=== PATIENT | female | born 1970 | race Caucasian/White ===

== ENCOUNTER 2019-08-13 06:56 | Day surgery (SDC) | payer BC ==
--- NOTE | 2019-08-12 09:08 | HP ---
DATE: 08/13/19 ANTICIPATED PROCEDURE: Screening colonoscopy. HISTORY OF PRESENT ILLNESS: Patient requiring colonoscopy. PAST MEDICAL HISTORY: ALLERGIES: NONE. CURRENT MEDICATIONS: None. SURGERIES: None. SOCIAL HISTORY: Negative. FAMILY HISTORY: Negative. REVIEW OF SYSTEMS: Cardiovascular negative. Pulmonary negative. Gastrointestinal negative. PHYSICAL EXAMINATION: Vital signs normal. CHEST: Clear. COR: Regular. ABDOMEN: Satisfactory. PLAN: Screening colonoscopy.
[2019-08-13] MEDS ORDERED: Lactated Ringers 1,000 ML IV ONE ×2 (07:05→09:47)
[2019-08-13] MEDS ORDERED: Lactated Ringers 1,000 ML IV SCH (07:30)
[2019-08-13] MEDS ORDERED: DIPRIVAN 200 MG/20 ML IV ONE ×2 (09:24→09:35)
[2019-08-13 10:38] VITALS: O2SAT 100
[2019-08-13 11:10] VITALS: PULSE 79
[2019-08-13 11:11] VITALS: BP 145/77
--- NOTE | 2019-08-14 09:58 | OP ---
SURGERY DATE: 08/13/19 SURGERY TIME: 926 PREOPERATIVE DIAGNOSIS: 1. 48 YEARS OLD, PRESENTS FOR SCREENING. SHE DOES HAVE A FAMILY HISTORY WITH AN UNCLE WITH COLON CANCER. POSTOPERATIVE DIAGNOSIS: 1. NORMAL COLON. PROCEDURE: 1. Colonoscopy complete to cecum. FINDINGS: Normal. SURGEON: Luis Camacho M.D. ANESTHESIA: MAC. COMPLICATIONS: None. CONDITION: Stable. INDICATION: Patient presents for colonoscopic examination. OPERATIVE PROCEDURE: Taken to endoscopy. Anal digital examination satisfactory. Scope introduced. Scope advanced to the cecum. Base of the cecum, ileocecal valve, and appendiceal orifice normal. Ascending, hepatic, transverse, splenic, descending, sigmoid, rectum, and anus normal. IMPRESSION: 1. NORMAL EXAMINATION. PLAN: Follow-up 5 years as there is a family member with colorectal cancer.
== END 2019-08-13 11:08 | disposition home or self-care (01) ==
LOC: SDC 06:56
PROVIDERS: ATTEND Surgery
DX: Z12.11 Encounter for screening for malignant neoplasm of colon (principal); Z80.0 Family history of malignant neoplasm of digestive organs
CPT/HCPCS: J2704